=== PATIENT | female | born 1975 ===

== ENCOUNTER 2021-11-03 11:44 | Emergency (ER) | payer SELFPAY ==
[2021-11-03 12:14] VITALS: BP 158/81; PULSE 98; RESP 18; TEMP 97.7
--- NOTE | 2021-11-03 13:08 | XR ---
EXAMINATION TYPE: XR shoulder complete RT DATE OF EXAM: 11/03/2021 Comparison: None Clinical History: 46-year-old female shoulder pain. Findings: AC joint is intact. Subacromial space is preserved. There are a couple small calcific densities adjac ent to the greater tuberosity measuring 3 mm. No acute fracture, subluxation or dislocation. Impression: A couple small 3 mm calcific densities adjacent to the greater tuberosity. Correlate for possible mine cific tendinitis. Otherwise, no acute osseous abnormality seen.
--- NOTE | 2021-11-03 13:40 | ED ---
Extremity Problem HPI - General Chief complaint: Extremity Problem,Nontraumatic Stated complaint: rt shoulder disclocation Time Seen by Provider: 11/03/21 13:31 Source: patient, family, RN notes reviewed Mode of arrival: ambulatory Limitations: no limitations - History of Present Illness Initial comments: This is a 46-year-old female who presents to the emergency department for right shoulder pain. She is currently camping, and when she woke up this morning, she realized that her air mattress had deflated. At that time she started to notice the right shoulder pain. She has also had some tingling in her fingertips as well. She is having difficulty fully moving the arm due to the pain. She has not yet taken anything to relieve her symptoms. She does not have a history of any problems with this shoulder. Denies any fevers, chills, sore throat, cough, dyspnea, chest pain, palpitations, abdominal pain, nausea, vomiting, diarrhea, back pain, or headaches. MD Complaint: extremity pain Location: right, upper extremity Associated Symptoms: denies other symptoms - Related Data Allergies Allergy/AdvReac Type Severity Reaction Status Date / Time No Known Allergies Allergy Verified 11/03/21 12:14 Review of Systems ROS Statement: Those systems with pertinent positive or pertinent negative responses have been documented in the HPI. ROS Other: All systems not noted in ROS Statement are negative. Past Medical History Past Medical History: No Reported History History of Any Multi-Drug Resistant Organisms: None Reported Past Surgical History: Tubal Ligation Past Psychological History: No Psychological Hx Reported Smoking Status: Never smoker Past Alcohol Use History: Rare Past Drug Use History: None Reported General Exam Limitations: no limitations General appearance: alert, in no apparent distress Head exam: Present: atraumatic, normocephalic, normal inspection Respiratory exam: Present: normal lung sounds bilaterally. Absent: respiratory distress, wheezes, rales, rhonchi, stridor Cardiovascular Exam: Present: regular rate, normal rhythm, normal heart sounds. Absent: systolic murmur, diastolic murmur, rubs, gallop, clicks Extremities exam: Present: other (Mild tenderness to palpation over the right shoulder. No obvious deformities. Limited active range of motion secondary to pain. 2+ radial pulses and capillary refill less than 1 second.) Neurological exam: Present: alert, oriented X3, CN II-XII intact Psychiatric exam: Present: normal affect, normal mood Skin exam: Present: warm, dry, intact, normal color. Absent: rash Course Vital Signs 11/03/21 12:11 Temperature 97.7 F Pulse Rate 98 Respiratory 18 Rate Blood Pressure 158/81 O2 Sat by Pulse 100 Oximetry Medical Decision Making - Medical Decision Making This is a 46-year-old female who presents to the emergency department for right shoulder pain. X-rays obtained revealing no fractures or dislocations and possible calcific tendinitis. Findings discussed with the patient. Advised [id number] ibuprofen and Tylenol as needed for pain relief. Also discussed applying ice for 15-20 minutes every 2-3 hours for additional relief. She was given a sling to use if needed for support. Advised she avoid putting excess pressure on the shoulder as well, as it may further exacerbate the symptoms. She'll follow-up with her primary care provider to reevaluate her symptoms. Return precautions reviewed in depth, the patient is instructed to return to the emergency department with any new, worsening, or concerning symptoms. Patient verbalized understanding. This case was discussed in detail with the attending ED physician. Presentation, findings, and treatment plan discussed in detail as well. - Radiology Data Radiology results: report reviewed, image reviewed Disposition Clinical Impression: Tendonitis of shoulder, right Disposition: HOME SELF-CARE Instructions (If sedation given, give patient instructions): How to Use a Sling (ED), Calcific Tendinitis (ED), Shoulder Pain (ED) Additional Instructions: Return to the emergency department with any new, worsening, or concerning symptoms. Alternate with ibuprofen and Tylenol as needed for pain relief. You can also apply ice for additional symptomatic management. Use the sling if needed for support. Avoid putting excess pressure on the shoulder, such as laying on it at night, as it may further exacerbate this issue. Is patient prescribed a controlled substance at d/c from ED?: No Referrals: None,Stated [Primary Care Provider] - 1-2 days
== END 2021-11-03 13:57 | disposition home or self-care (01) ==
LOC: EC 11:44
DX: M75.31 Calcific tendinitis of right shoulder (principal)
CPT/HCPCS: 99283; 99285